=== PATIENT | female | born 1985 | race Caucasian/White ===

== ENCOUNTER 2017-03-31 02:59 | Emergency (ER) | payer SELFPAY ==
[~2017-03-31 02:59] MED LIST: CLEOCIN HCL300 MG PO; HYDROCODONE-APA1 TAB PO; LEVAQUIN500 MG PO
[2017-03-31 05:06] LABS: BASOPHILS 0.2 % (0-2); EOSINOPHILS 0.5 % (0-7); HEMATOCRIT 41.7 % (36.0-48.0); HEMOGLOBIN 14.1 g/dL (12-16); IMMATURE GRANULOCYTES 0.3 % (0-5); LYMPHOCYTES 11.2 % (15-50); MCH 31.8 pg (26.0-34.0); MCHC 33.8 g/dL (31.0-37.0); MCV 93.9 fL (80.0-100.0); MEAN PLATELET VOLUME 9.8 fL (7.4-10.4); MONOCYTES 7.7 % (2-11); NEUTROPHILS 80.1 % (40-80); PLATELET COUNT 292 10x3/uL (130-400); RBC 4.44 10x6/uL (4.00-5.40); RDW 12.5 % (11.5-14.5); WBC 18.5 10x3/uL (4.8-10.8)
[2017-03-31 05:16] LABS: ALBUMIN 3.2 g/dL (3.4-5.0); ALKALINE PHOSPHATASE 91 U/L (46-116); ALT (SGPT) 23 U/L (10-68); BILIRUBIN - TOTAL 0.29 mg/dL (0.2-1.3); CALC OSMOLALITY 271 mosm/kg (275-300); CALCIUM 8.7 mg/dL (8.5-10.1); CARBON DIOXIDE 28.1 mmol/L (21.0-32.0); CHLORIDE - SERUM 101 mmol/L (98-107); CREATININE - SERUM 0.7 mg/dL (0.6-1.3); GLUCOSE 90 mg/dL (74-106); POTASSIUM - SERUM 3.5 mmol/L (3.5-5.1); PROTEIN - SERUM 7.1 g/dL (6.4-8.2); SODIUM 136 mmol/L (136-145); UREA NITROGEN 13 mg/dL (7-18); eGFR NON AFRICAN AMERICAN > 90 mL/min (90-120)
[2017-03-31 05:25] LABS: HCG SERUM NEGATIVE (NEGATIVE)
[2017-03-31 05:34] LABS: APPEARANCE CLEAR (CLEAR); BILIRUBIN NEGATIVE (NEGATIVE); COLOR YELLOW (YELLOW); GLUCOSE NEGATIVE (NEGATIVE); HCG URINE NEGATIVE (NEGATIVE); KETONE NEGATIVE (NEGATIVE); NITRITE NEGATIVE (NEGATIVE); PROTEIN NEGATIVE (NEGATIVE); UROBILINOGEN NORMAL (NORMAL)
[2017-03-31 05:45] LABS: UDS - AMPHET POSITIVE QUAL (NEGATIVE); UDS - BARB NEGATIVE QUAL (NEGATIVE); UDS - BENZO NEGATIVE QUAL (NEGATIVE); UDS - COCAINE NEGATIVE QUAL (NEGATIVE); UDS - OPIATE NEGATIVE QUAL (NEGATIVE); UDS - PCP NEGATIVE QUAL (NEGATIVE); UDS - THC NEGATIVE QUAL (NEGATIVE)
== END 2017-03-31 06:56 | disposition home or self-care (01) ==
LOC: D.ER 02:59
PROVIDERS: Family Medicine
DX: L03.211 Cellulitis of face (principal); F15.10 Other stimulant abuse, uncomplicated; F17.200 Nicotine dependence, unspecified, uncomplicated

== ENCOUNTER 2017-05-23 16:53 | Emergency (ER) | payer MEDICAID | END 2017-05-23 18:12 | disposition home or self-care (01) | LOC: D.ER 16:53 | DX: L98.499 Non-pressure chronic ulcer of skin of other sites with unspecified severity (principal); F17.200 Nicotine dependence, unspecified, uncomplicated ==

== ENCOUNTER 2017-10-17 13:58 | Emergency (ER) | payer SELFPAY ==
[2017-10-17 14:55] LABS: BASOPHILS 0.5 % (0-2); EOSINOPHILS 0.8 % (0-7); HEMATOCRIT 40.8 % (36.0-48.0); HEMOGLOBIN 13.6 g/dL (12-16); IMMATURE GRANULOCYTES 0.3 % (0-5); LYMPHOCYTES 34.7 % (15-50); MCH 32.2 pg (26.0-34.0); MCHC 33.3 g/dL (31.0-37.0); MCV 96.5 fL (80.0-100.0); MEAN PLATELET VOLUME 9.8 fL (7.4-10.4); MONOCYTES 9.3 % (2-11); NEUTROPHILS 54.4 % (40-80); PLATELET COUNT 263 10x3/uL (130-400); RBC 4.23 10x6/uL (4.00-5.40); RDW 12.6 % (11.5-14.5); WBC 5.9 10x3/uL (4.8-10.8)
[2017-10-17 15:05] LABS: ALBUMIN 3.3 g/dL (3.4-5.0); ALKALINE PHOSPHATASE 81 U/L (46-116); ALT (SGPT) 26 U/L (10-68); AMYLASE - SERUM 46 U/L (25-115); BILIRUBIN - TOTAL 0.19 mg/dL (0.2-1.3); CALC OSMOLALITY 281 mosm/kg (275-300); CALCIUM 8.7 mg/dL (8.5-10.1); CARBON DIOXIDE 30.2 mmol/L (21.0-32.0); CHLORIDE - SERUM 106 mmol/L (98-107); CREATININE - SERUM 0.7 mg/dL (0.6-1.3); GLUCOSE 73 mg/dL (74-106); LIPASE 80 U/L (73-393); POTASSIUM - SERUM 4.1 mmol/L (3.5-5.1); PROTEIN - SERUM 6.8 g/dL (6.4-8.2); SODIUM 142 mmol/L (136-145); UREA NITROGEN 13 mg/dL (7-18); eGFR NON AFRICAN AMERICAN > 90 mL/min (90-120)
[2017-10-17 15:31] LABS: APPEARANCE HAZY (CLEAR); BILIRUBIN NEGATIVE (NEGATIVE); COLOR STRAW (YELLOW); GLUCOSE NEGATIVE (NEGATIVE); KETONE NEGATIVE (NEGATIVE); NITRITE POSITIVE (NEGATIVE); PROTEIN TRACE mg/dL (NEGATIVE); UROBILINOGEN NORMAL (NORMAL)
[2017-10-17 15:32] LABS: RED CELLS - URINE 0-5 /hpf (0-5)
[2017-10-17 15:34] LABS: BACTERIA MODERATE /hpf (NONE SEEN)
== END 2017-10-17 19:55 | disposition home or self-care (01) ==
LOC: D.ER 13:58
PROVIDERS: Family Medicine
DX: N39.0 Urinary tract infection, site not specified (principal); F17.200 Nicotine dependence, unspecified, uncomplicated

== ENCOUNTER 2018-01-15 03:44 | Emergency (ER) | payer SELFPAY ==
[~2018-01-15] VITALS: Ht 157.5 cm; Wt 47.6 kg
[2018-01-15 03:45] VITALS: BP 151/92; Ht 157.5 cm; Wt 47.6 kg
[2018-01-15 05:17] LABS: UDS - AMPHET POSITIVE QUAL (NEGATIVE); UDS - BARB NEGATIVE QUAL (NEGATIVE); UDS - BENZO POSITIVE QUAL (NEGATIVE); UDS - COCAINE NEGATIVE QUAL (NEGATIVE); UDS - OPIATE NEGATIVE QUAL (NEGATIVE); UDS - PCP NEGATIVE QUAL (NEGATIVE); UDS - THC POSITIVE QUAL (NEGATIVE)
[2018-01-15 05:42] LABS: APPEARANCE HAZY (CLEAR); BILIRUBIN NEGATIVE (NEGATIVE); COLOR YELLOW (YELLOW); GLUCOSE NEGATIVE (NEGATIVE); KETONE NEGATIVE (NEGATIVE); NITRITE NEGATIVE (NEGATIVE); PROTEIN NEGATIVE (NEGATIVE); SPECIFIC GRAVITY 1.025 (1.005-1.020); UROBILINOGEN NORMAL (NORMAL)
[2018-01-15 05:43] LABS: AMORPHOUS SEDIMENT >1+ /lpf (NONE SEEN); BACTERIA FEW /hpf (NONE SEEN); CALCIUM OXALATE CRYSTALS 0-5 /hpf (NONE SEEN); EPITHELIAL CELLS 0-5 /hpf (0-5); RED CELLS - URINE 0-5 /hpf (0-5); WHITE CELLS - URINE 0-5 /hpf (0-5)
[2018-01-15 05:47] LABS: BASOPHILS 0.2 % (0-2); EOSINOPHILS 0.3 % (0-7); HEMATOCRIT 38.7 % (36.0-48.0); HEMOGLOBIN 13.1 g/dL (12-16); IMMATURE GRANULOCYTES 0.2 % (0-5); LYMPHOCYTES 18.8 % (15-50); MCH 31.8 pg (26.0-34.0); MCHC 33.9 g/dL (31.0-37.0); MCV 93.9 fL (80.0-100.0); MONOCYTES 10.4 % (2-11); NEUTROPHILS 70.1 % (40-80); PLATELET COUNT 250 10x3/uL (130-400); RBC 4.12 10x6/uL (4.00-5.40); RDW 12.3 % (11.5-14.5); WBC 12.5 10x3/uL (4.8-10.8)
[2018-01-15] MEDS ORDERED: TYLENOL W/CODEI1 TAB PO (06:21)
[2018-01-15 06:50] LABS: ALBUMIN 3.6 g/dL (3.4-5.0); ALKALINE PHOSPHATASE 92 U/L (46-116); ALT (SGPT) 27 U/L (10-68); BILIRUBIN - TOTAL 0.47 mg/dL (0.2-1.3); CALC OSMOLALITY 281 mosm/kg (275-300); CALCIUM 8.5 mg/dL (8.5-10.1); CARBON DIOXIDE 26.9 mmol/L (21.0-32.0); CHLORIDE - SERUM 104 mmol/L (98-107); CREATININE - SERUM 0.6 mg/dL (0.6-1.3); GLUCOSE 100 mg/dL (74-106); POTASSIUM - SERUM 4.2 mmol/L (3.5-5.1); SODIUM 140 mmol/L (136-145); UREA NITROGEN 20 mg/dL (7-18); eGFR NON AFRICAN AMERICAN > 90 mL/min (90-120)
== END 2018-01-15 06:25 | disposition home or self-care (01) ==
LOC: D.ER 03:44
PROVIDERS: Family Medicine
DX: S01.01XA Laceration without foreign body of scalp, initial encounter (principal); Y04.2XXA Assault by strike against or bumped into by another person, initial encounter; Y93.89 Activity, other specified; Y92.89 Other specified places as the place of occurrence of the external cause; T14.8XXA Other injury of unspecified body region, initial encounter; S06.0X9A Concussion with loss of consciousness of unspecified duration, initial encounter; F19.10 Other psychoactive substance abuse, uncomplicated; F17.200 Nicotine dependence, unspecified, uncomplicated

== ENCOUNTER 2018-01-24 16:17 | Emergency (ER) | payer SELFPAY ==
[~2018-01-24] VITALS: Ht 157.5 cm; Wt 45.5 kg
[~2018-01-24 16:17] MED LIST changes: +TYLENOL W/CODEI1 TAB PO
[2018-01-24 16:28] VITALS: BP 124/85; Ht 157.5 cm; Wt 45.5 kg
== END 2018-01-24 19:36 | disposition left against medical advice (07) ==
LOC: D.ER 16:17
DX: R51 Headache (principal)

== ENCOUNTER 2018-03-11 05:55 | Emergency (ER) | payer SELFPAY ==
[~2018-03-11] VITALS: Ht 157.5 cm; Wt 47.7 kg
[2018-03-11 05:59] VITALS: Ht 157.5 cm; Wt 47.7 kg
[2018-03-11 06:43] LABS: UDS - AMPHET POSITIVE QUAL (NEGATIVE); UDS - BARB NEGATIVE QUAL (NEGATIVE); UDS - BENZO POSITIVE QUAL (NEGATIVE); UDS - COCAINE NEGATIVE QUAL (NEGATIVE); UDS - OPIATE NEGATIVE QUAL (NEGATIVE); UDS - PCP NEGATIVE QUAL (NEGATIVE); UDS - THC NEGATIVE QUAL (NEGATIVE)
[2018-03-11 07:07] LABS: ALBUMIN 2.9 g/dL (3.4-5.0); ALKALINE PHOSPHATASE 70 U/L (46-116); ALT (SGPT) 30 U/L (10-68); BILIRUBIN - TOTAL 0.17 mg/dL (0.2-1.3); CALC OSMOLALITY 281 mosm/kg (275-300); CALCIUM 7.8 mg/dL (8.5-10.1); CARBON DIOXIDE 29.3 mmol/L (21.0-32.0); CHLORIDE - SERUM 105 mmol/L (98-107); CREATININE - SERUM 0.7 mg/dL (0.6-1.3); GLUCOSE 106 mg/dL (74-106); HCG SERUM NEGATIVE (NEGATIVE); POTASSIUM - SERUM 3.5 mmol/L (3.5-5.1); PROTEIN - SERUM 6.3 g/dL (6.4-8.2); SODIUM 141 mmol/L (136-145); UREA NITROGEN 14 mg/dL (7-18); eGFR NON AFRICAN AMERICAN > 90 mL/min (90-120)
[2018-03-11 07:20] LABS: APPEARANCE HAZY (CLEAR); BILIRUBIN NEGATIVE (NEGATIVE); COLOR YELLOW (YELLOW); GLUCOSE NEGATIVE (NEGATIVE); KETONE NEGATIVE (NEGATIVE); NITRITE NEGATIVE (NEGATIVE); PROTEIN NEGATIVE (NEGATIVE); SPECIFIC GRAVITY 1.025 (1.005-1.020); UROBILINOGEN NORMAL (NORMAL)
[2018-03-11 07:25] LABS: AMORPHOUS SEDIMENT <1+ /lpf (NONE SEEN); BACTERIA FEW /hpf (NONE SEEN); CALCIUM OXALATE CRYSTALS 25-50 /hpf (NONE SEEN); EPITHELIAL CELLS 0-5 /hpf (0-5); MUCUS >1+ /lpf (NONE SEEN); RED CELLS - URINE 0-5 /hpf (0-5); WHITE CELLS - URINE 0-5 /hpf (0-5)
[2018-03-11 07:34] LABS: BASOPHILS 0.3 % (0-2); EOSINOPHILS 0.8 % (0-7); HEMATOCRIT 36.6 % (36.0-48.0); HEMOGLOBIN 12.7 g/dL (12-16); IMMATURE GRANULOCYTES 0.1 % (0-5); LYMPHOCYTES 27.9 % (15-50); MCH 32.5 pg (26.0-34.0); MCHC 34.7 g/dL (31.0-37.0); MCV 93.6 fL (80.0-100.0); MEAN PLATELET VOLUME 10.1 fL (7.4-10.4); MONOCYTES 9.8 % (2-11); NEUTROPHILS 61.1 % (40-80); PLATELET COUNT 264 10x3/uL (130-400); RBC 3.91 10x6/uL (4.00-5.40); RDW 12.2 % (11.5-14.5); WBC 8.8 10x3/uL (4.8-10.8)
[2018-03-11 13:11] VITALS: BP 103/60
== END 2018-03-11 13:12 | disposition home or self-care (01) ==
LOC: D.ER 05:55
PROVIDERS: Family Medicine
DX: R51 Headache (principal); F15.10 Other stimulant abuse, uncomplicated; F07.81 Postconcussional syndrome; R42 Dizziness and giddiness; R11.10 Vomiting, unspecified; F17.200 Nicotine dependence, unspecified, uncomplicated

== ENCOUNTER 2018-06-04 19:26 | Inpatient (IN) | payer SELFPAY ==
[~2018-06-04] VITALS: Ht 157.5 cm; Wt 46.3 kg
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
--- NOTE | ~2018-06-04 | MORECARE ---
CASE MANAGEMENT DISCHARGE SUMMARY PATIENT: GLORIA TYLER UNIT: [id number] ADM DATE: AGE: 32 : 81 SEX: F ROOM/BED: AUTHOR: SHERON EUBANKS PHYSICIAN: REFERRING PHYSICIAN: WENDY DEAN MD DATE OF SERVICE: 06/04/18 Discharge Plan Patient Name: GLORIA TYLER [facility] [facility] 1985 Planned Disposition: Anticipated Discharge Date: Discharge Date: Expected LOS: 0 Initial Reviewer: [email or web address] Initial Review Date: 06/04/2018 Generated: 06/04/18 9:05 pm DCPIA - Discharge Planning Initial Assessment Updated by [email or web address]: Re Medrano on 06/04/18 8:01 pm * Is the patient Alert and Oriented? Yes * How many steps to enter\exit or inside your home? 3 with stallworth * PCP NONE * Pharmacy [facility] * Preadmission Environment Home with Family * ADLs Independent * Equipment None * Other Equipment NA * List name and contact numbers for known caregivers / representatives who currently or will assist patient after discharge: Yonas Farhad (family) [phone] * Verbal permission to speak to the caregivers and representatives has been obtained from the patient. No * Community resources currently utilized None * Please name any agencies selected above. NA * Additional services required to return to the preadmission environment? No * Can the patient safely return to the preadmission environment? Yes * Has this patient been hospitalized within the prior 30 days at any hospital? No Patient Name: GLORIA TYLER Page [id number] at 2005 All edits/amendments must be made on the electronic document DICTATION DATE: 06/04/182004 FIELD ACCOUNT DIRECTOR: MONIKA 06/04/182004 RPT#: [id number] [place] DATE: STATUS: REG [facility] [address] [place] [address] END OF REPORT
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
[2018-06-04 20:24] LABS: BASOPHILS 0.2 % (0-2); EOSINOPHILS 0.6 % (0-7); HEMATOCRIT 40.1 % (36.0-48.0); HEMOGLOBIN 13.1 g/dL (12-16); IMMATURE GRANULOCYTES 0.1 % (0-5); LYMPHOCYTES 21.4 % (15-50); MCH 31.8 pg (26.0-34.0); MCHC 32.7 g/dL (31.0-37.0); MCV 97.3 fL (80.0-100.0); MEAN PLATELET VOLUME 10.1 fL (7.4-10.4); MONOCYTES 10.9 % (2-11); NEUTROPHILS 66.8 % (40-80); PLATELET COUNT 288 10x3/uL (130-400); RBC 4.12 10x6/uL (4.00-5.40); RDW 12.3 % (11.5-14.5); WBC 8.7 10x3/uL (4.8-10.8)
[2018-06-04 20:31] LABS: APPEARANCE CLEAR (CLEAR); BILIRUBIN NEGATIVE (NEGATIVE); COLOR YELLOW (YELLOW); GLUCOSE NEGATIVE (NEGATIVE); KETONE NEGATIVE (NEGATIVE); NITRITE NEGATIVE (NEGATIVE); PROTEIN NEGATIVE (NEGATIVE); UROBILINOGEN NORMAL (NORMAL)
[2018-06-04 20:38] LABS: ALBUMIN 3.1 g/dL (3.4-5.0); ALKALINE PHOSPHATASE 103 U/L (46-116); ALT (SGPT) 34 U/L (10-68); CALC OSMOLALITY 278 mosm/kg (275-300); CALCIUM 8.4 mg/dL (8.5-10.1); CARBON DIOXIDE 32.6 mmol/L (21.0-32.0); CHLORIDE - SERUM 106 mmol/L (98-107); CREATININE - SERUM 0.9 mg/dL (0.6-1.3); GLUCOSE 90 mg/dL (74-106); POTASSIUM - SERUM 4.4 mmol/L (3.5-5.1); SODIUM 139 mmol/L (136-145); UREA NITROGEN 16 mg/dL (7-18); eGFR NON AFRICAN AMERICAN 76 mL/min (90-120)
[2018-06-04 20:42] LABS: AMYLASE - SERUM 62 U/L (25-115); LIPASE 103 U/L (73-393)
[2018-06-04 20:45] LABS: BILIRUBIN - TOTAL 0.09 mg/dL (0.2-1.3); TROPONIN-I < 0.017 ng/mL (0.000-0.060)
[2018-06-04 21:07] VITALS: BP 136/80
[2018-06-04 21:50] LABS: HCG URINE NEGATIVE (NEGATIVE)
[2018-06-05 01:10] VITALS: BP 102/63; BMI 18.7
[2018-06-05 04:30] VITALS: BP 102/71
[2018-06-05 04:55] LABS: BASOPHILS 0.3 % (0-2); EOSINOPHILS 0.8 % (0-7); HEMATOCRIT 36.6 % (36.0-48.0); HEMOGLOBIN 11.9 g/dL (12-16); IMMATURE GRANULOCYTES 0.1 % (0-5); LYMPHOCYTES 33.1 % (15-50); MCH 31.6 pg (26.0-34.0); MCHC 32.5 g/dL (31.0-37.0); MCV 97.1 fL (80.0-100.0); MEAN PLATELET VOLUME 10.3 fL (7.4-10.4); NEUTROPHILS 48.7 % (40-80); PLATELET COUNT 273 10x3/uL (130-400); RBC 3.77 10x6/uL (4.00-5.40); RDW 12.7 % (11.5-14.5); WBC 7.2 10x3/uL (4.8-10.8)
[2018-06-05 05:23] LABS: ALBUMIN 2.4 g/dL (3.4-5.0); ALKALINE PHOSPHATASE 72 U/L (46-116); ALT (SGPT) 26 U/L (10-68); BILIRUBIN - TOTAL 0.15 mg/dL (0.2-1.3); CALC OSMOLALITY 284 mosm/kg (275-300); CALCIUM 7.8 mg/dL (8.5-10.1); CARBON DIOXIDE 27.5 mmol/L (21.0-32.0); CHLORIDE - SERUM 109 mmol/L (98-107); CREATININE - SERUM 0.8 mg/dL (0.6-1.3); GLUCOSE 81 mg/dL (74-106); POTASSIUM - SERUM 4.1 mmol/L (3.5-5.1); PROTEIN - SERUM 5.7 g/dL (6.4-8.2); SODIUM 144 mmol/L (136-145); eGFR NON AFRICAN AMERICAN 87 mL/min (90-120)
[2018-06-05 05:26] LABS: UREA NITROGEN 11 mg/dL (7-18)
[2018-06-05 10:20] VITALS: BP 121/83
[2018-06-05 12:17] VITALS: Ht 157.5 cm; Wt 46.3 kg
[2018-06-05 12:34] VITALS: BP 113/71
== END 2018-06-05 16:06 | disposition left against medical advice (07) | DRG 392 ==
LOC: D.ER 19:26 → D.MS 22:04 → D.EDHOLD 22:04 → D.MS 23:28
PROVIDERS: Family Medicine
DX: R11.2 Nausea with vomiting, unspecified (principal); D64.9 Anemia, unspecified; Z72.0 Tobacco use

== ENCOUNTER 2018-06-13 05:29 | Emergency (ER) | payer SELFPAY ==
[~2018-06-13] VITALS: Ht 157.5 cm; Wt 46.4 kg
[2018-06-13 05:34] VITALS: Ht 157.5 cm; Wt 46.4 kg
[2018-06-13 06:32] LABS: BASOPHILS 0.2 % (0-2); EOSINOPHILS 0.3 % (0-7); HEMATOCRIT 40.5 % (36.0-48.0); HEMOGLOBIN 13.9 g/dL (12-16); IMMATURE GRANULOCYTES 0.1 % (0-5); LYMPHOCYTES 16.2 % (15-50); MCH 32.4 pg (26.0-34.0); MCHC 34.3 g/dL (31.0-37.0); MCV 94.4 fL (80.0-100.0); MONOCYTES 12.4 % (2-11); NEUTROPHILS 70.8 % (40-80); PLATELET COUNT 302 10x3/uL (130-400); RBC 4.29 10x6/uL (4.00-5.40); RDW 12.6 % (11.5-14.5); WBC 13.7 10x3/uL (4.8-10.8)
[2018-06-13 06:52] LABS: ALBUMIN 3.6 g/dL (3.4-5.0); ALKALINE PHOSPHATASE 98 U/L (46-116); ALT (SGPT) 27 U/L (10-68); BILIRUBIN - TOTAL 0.31 mg/dL (0.2-1.3); CALC OSMOLALITY 278 mosm/kg (275-300); CARBON DIOXIDE 26.9 mmol/L (21.0-32.0); CHLORIDE - SERUM 100 mmol/L (98-107); CREATININE - SERUM 0.7 mg/dL (0.6-1.3); GLUCOSE 89 mg/dL (74-106); POTASSIUM - SERUM 3.3 mmol/L (3.5-5.1); SODIUM 139 mmol/L (136-145); UREA NITROGEN 18 mg/dL (7-18); eGFR NON AFRICAN AMERICAN > 90 mL/min (90-120)
[2018-06-13 07:00] LABS: APPEARANCE CLEAR (CLEAR); BACTERIA MODERATE /hpf (NONE SEEN); BILIRUBIN NEGATIVE (NEGATIVE); COLOR YELLOW (YELLOW); EPITHELIAL CELLS 0-5 /hpf (0-5); GLUCOSE NEGATIVE (NEGATIVE); KETONE NEGATIVE (NEGATIVE); NITRITE NEGATIVE (NEGATIVE); PROTEIN NEGATIVE (NEGATIVE); SPECIFIC GRAVITY 1.015 (1.005-1.020); UROBILINOGEN NORMAL (NORMAL); WHITE CELLS - URINE 0-5 /hpf (0-5)
[2018-06-13 07:01] LABS: UDS - AMPHET POSITIVE QUAL (NEGATIVE); UDS - BARB NEGATIVE QUAL (NEGATIVE); UDS - BENZO NEGATIVE QUAL (NEGATIVE); UDS - COCAINE NEGATIVE QUAL (NEGATIVE); UDS - OPIATE NEGATIVE QUAL (NEGATIVE); UDS - PCP NEGATIVE QUAL (NEGATIVE); UDS - THC NEGATIVE QUAL (NEGATIVE)
[2018-06-13 07:02] LABS: MUCUS >1+ /lpf (NONE SEEN)
[2018-06-13] MEDS ORDERED: VENTOLIN HFA18 GM INH (07:02)
[2018-06-13] MEDS ORDERED: CLEOCIN HCL300 MG PO (07:02)
[2018-06-13 08:00] VITALS: BP 126/82
== END 2018-06-13 08:00 | disposition home or self-care (01) ==
LOC: D.ER 05:29
PROVIDERS: Family Medicine
DX: L03.114 Cellulitis of left upper limb (principal); F17.200 Nicotine dependence, unspecified, uncomplicated

== ENCOUNTER 2018-06-24 13:09 | Emergency (ER) | payer SELFPAY ==
[~2018-06-24] VITALS: Ht 157.5 cm; Wt 46.4 kg
[~2018-06-24 13:09] MED LIST changes: +VENTOLIN HFA18 GM INH
[2018-06-24 13:13] VITALS: Ht 157.5 cm; Wt 46.4 kg
[2018-06-24 14:20] LABS: APPEARANCE CLEAR (CLEAR); BASOPHILS 0.4 % (0-2); BILIRUBIN NEGATIVE (NEGATIVE); COLOR YELLOW (YELLOW); EOSINOPHILS 1.7 % (0-7); GLUCOSE NEGATIVE (NEGATIVE); HEMATOCRIT 39.7 % (36.0-48.0); HEMOGLOBIN 13.1 g/dL (12-16); IMMATURE GRANULOCYTES 0.1 % (0-5); KETONE NEGATIVE (NEGATIVE); LYMPHOCYTES 27.3 % (15-50); MCH 31.6 pg (26.0-34.0); MCV 95.9 fL (80.0-100.0); MEAN PLATELET VOLUME 10.1 fL (7.4-10.4); MONOCYTES 15.1 % (2-11); NEUTROPHILS 55.4 % (40-80); NITRITE NEGATIVE (NEGATIVE); PLATELET COUNT 299 10x3/uL (130-400); PROTEIN NEGATIVE (NEGATIVE); RBC 4.14 10x6/uL (4.00-5.40); RDW 12.4 % (11.5-14.5); SPECIFIC GRAVITY 1.005 (1.005-1.020); UROBILINOGEN NORMAL (NORMAL); WBC 7.8 10x3/uL (4.8-10.8)
[2018-06-24 14:34] LABS: ALKALINE PHOSPHATASE 86 U/L (46-116); ALT (SGPT) 30 U/L (10-68); BILIRUBIN - TOTAL 0.18 mg/dL (0.2-1.3); CALC OSMOLALITY 283 mosm/kg (275-300); CALCIUM 8.3 mg/dL (8.5-10.1); CARBON DIOXIDE 28.3 mmol/L (21.0-32.0); CHLORIDE - SERUM 106 mmol/L (98-107); CREATININE - SERUM 0.8 mg/dL (0.6-1.3); GLUCOSE 96 mg/dL (74-106); LIPASE 98 U/L (73-393); POTASSIUM - SERUM 4.1 mmol/L (3.5-5.1); PROTEIN - SERUM 6.9 g/dL (6.4-8.2); SODIUM 141 mmol/L (136-145); UREA NITROGEN 20 mg/dL (7-18); eGFR NON AFRICAN AMERICAN 87 mL/min (90-120)
[2018-06-24] MEDS ORDERED: ZOFRAN ODT4 MG/UDTAB PO (17:30)
[2018-06-24] MEDS ORDERED: BENTYL 20 MG TA20 MG PO (17:30)
[2018-06-24 18:09] VITALS: BP 102/60
[2018-06-24 19:41] LABS: HCG URINE NEGATIVE (NEGATIVE)
== END 2018-06-24 18:14 | disposition home or self-care (01) ==
LOC: D.ER 13:09
PROVIDERS: Family Medicine
DX: R11.2 Nausea with vomiting, unspecified (principal); R10.9 Unspecified abdominal pain; F17.200 Nicotine dependence, unspecified, uncomplicated

== ENCOUNTER 2018-06-27 09:34 | Emergency (ER) | payer SELFPAY ==
[~2018-06-27] VITALS: Ht 157.5 cm; Wt 50.0 kg
[~2018-06-27 09:34] MED LIST changes: +BENTYL 20 MG TA20 MG PO; +ZOFRAN ODT4 MG/UDTAB PO
[2018-06-27 09:37] VITALS: Ht 157.5 cm; Wt 50.0 kg
[2018-06-27] MEDS ORDERED: PHENERGAN25 M1 PO (10:30)
[2018-06-27 11:08] VITALS: BP 95/59
== END 2018-06-27 10:54 | disposition home or self-care (01) ==
LOC: D.ER 09:34
DX: R11.2 Nausea with vomiting, unspecified (principal); I10 Essential (primary) hypertension; F17.200 Nicotine dependence, unspecified, uncomplicated

== ENCOUNTER 2018-07-27 07:56 | Emergency (ER) | payer MEDICAID ==
[~2018-07-27] VITALS: Ht 157.5 cm; Wt 47.7 kg
[~2018-07-27 07:56] MED LIST changes: +PHENERGAN25 M1 PO
[2018-07-27 07:59] VITALS: Ht 157.5 cm; Wt 47.7 kg
[2018-07-27] MEDS ORDERED: AUGMENTIN 875-11 TAB PO (09:14)
[2018-07-27 09:38] VITALS: BP 115/77
== END 2018-07-27 09:39 | disposition home or self-care (01) ==
LOC: D.ER 07:56
DX: J40 Bronchitis, not specified as acute or chronic (principal); F17.200 Nicotine dependence, unspecified, uncomplicated; R07.9 Chest pain, unspecified

== ENCOUNTER 2019-02-13 18:25 | Emergency (ER) | payer SELFPAY ==
[~2019-02-13] VITALS: Ht 157.5 cm; Wt 46.4 kg
[~2019-02-13 18:25] MED LIST changes: +AUGMENTIN 875-11 TAB PO
[2019-02-13 18:48] VITALS: BP 127/86; Ht 157.5 cm; Wt 46.4 kg
== END 2019-02-13 20:25 | disposition left against medical advice (07) ==
LOC: D.ER 18:25
DX: R11.10 Vomiting, unspecified (principal)

== ENCOUNTER 2019-03-16 20:06 | Emergency (ER) | payer SELFPAY ==
[2019-02-13 18:48] VITALS: BMI 18.7
== END 2019-03-16 20:30 | disposition left against medical advice (07) ==
LOC: D.ER 20:06
DX: T14.8XXA Other injury of unspecified body region, initial encounter (principal)

== ENCOUNTER 2019-04-12 21:58 | Emergency (ER) | payer SELFPAY ==
[~2019-04-12] VITALS: Ht 157.5 cm; Wt 45.5 kg
[2019-04-12 22:09] VITALS: Ht 157.5 cm; Wt 45.5 kg
[2019-04-12] MEDS ORDERED: ERYTHROMYCIN OPT1 GM LEFT EYE (23:17)
[2019-04-12 23:33] VITALS: BP 127/91
== END 2019-04-12 23:33 | disposition home or self-care (01) ==
LOC: D.ER 21:58
DX: S05.02XA Injury of conjunctiva and corneal abrasion without foreign body, left eye, initial encounter (principal); X58.XXXA Exposure to other specified factors, initial encounter

== ENCOUNTER 2019-04-17 23:03 | Emergency (ER) | payer SELFPAY ==
[~2019-04-17] VITALS: Ht 157.5 cm; Wt 46.4 kg
[~2019-04-17 23:03] MED LIST changes: +ERYTHROMYCIN OPT1 GM LEFT EYE
[2019-04-17 23:07] VITALS: Ht 157.5 cm; Wt 46.4 kg
[2019-04-18] MEDS ORDERED: VIGAMOX3 ML LEFT EYE (00:45)
[2019-04-18] MEDS ORDERED: ERYTHROMYCIN OPT1 GM LEFT EYE (00:45)
[2019-04-18] MEDS ORDERED: HYDROCODONE-A1 UDTA2 PO (00:46)
[2019-04-18 00:55] VITALS: BP 120/69
== END 2019-04-18 00:56 | disposition home or self-care (01) ==
LOC: D.ER 23:03
DX: H16.032 Corneal ulcer with hypopyon, left eye (principal)

== ENCOUNTER 2020-03-29 17:37 | Emergency (ER) | payer SELFPAY ==
[~2020-03-29] VITALS: Ht 157.5 cm; Wt 47.7 kg
[~2020-03-29 17:37] MED LIST changes: +HYDROCODONE-A1 UDTA2 PO; +KEFLEX500 MG PO; +VIGAMOX3 ML LEFT EYE; +XANAX1 MG
[2020-03-29 18:06] VITALS: BP 147/85; Ht 157.5 cm; Wt 47.7 kg
== END 2020-03-29 21:04 | disposition left against medical advice (07) ==
LOC: D.ER 17:37
DX: S61.219A Laceration without foreign body of unspecified finger without damage to nail, initial encounter (principal)